=== PATIENT | female | born 1975 | race Caucasian/White ===

== ENCOUNTER 2016-08-18 09:37 | Outpatient (CLI) | payer MEDICARE | END 2016-08-18 09:38 | disposition home or self-care (01) | DX: E11.9 Type 2 diabetes mellitus without complications (principal) ==

== ENCOUNTER 2017-02-12 14:12 | Outpatient (CLI) | payer MEDICARE ==
--- NOTE | 2017-02-12 17:09 | Mammography Report ---
DIGITAL DIAGNOSTIC BILATERAL MAMMOGRAM: 02/12/2017 CLINICAL INDICATION: Galactorrhea. This is the patient's baseline mammogram. The patient reports two episodes of a small amount of clear discharge only on expression. No spontaneous or bloody discharge is described. TECHNIQUE: Bilateral CC, laterally exaggerated CC, MLO, true lateral, and spot magnification views. FINDINGS: The breasts demonstrate fatty replacement bilaterally. Coarse, typically benign calcificat ions are present. No suspicious masses, clustered microcalcifications, or regions of architectural di stortion are identified. Specifically, no retroareolar abnormality is appreciated in either breast. IMPRESSION: BENIGN FINDINGS. RECOMMENDATION: ROUTINE ANNUAL SCREENING UNLESS OTHERWISE CLINICALLY INDICATED. BIRADS CATEGORY 2-BENIGN FINDINGS. STANDARD QUALIFYING STATEMENTS 1. This examination was reviewed with the aid of Computer-Aided Detection (CAD). 2. A negative or benign imaging report should not delay biopsy if clinically suspicious findings are present. Consider surgical consultation if warranted. More than 5% of cancers are not identified by i maging. 3. Dense breasts may obscure an underlying neoplasm. JOB #: [id number] EXT JOB #:
== END 2017-02-12 14:13 | disposition home or self-care (01) ==
LOC: DI 14:12
PROVIDERS: ATTEND Physician Assistant
DX: N64.3 Galactorrhea not associated with childbirth (principal)
CPT/HCPCS: 77066

== ENCOUNTER 2017-03-18 13:14 | Outpatient (CLI) | payer MEDICARE, MEDICAID ==
[2017-03-18 19:33] LABS: HEMOGLOBIN A1C 0.77 g/dL
== END 2017-03-18 13:15 ==
LOC: LAB.N 13:14
PROVIDERS: ATTEND Nurse Practitioner Gerontology
DX: E11.9 Type 2 diabetes mellitus without complications (principal)
CPT/HCPCS: 36415; 83036

== ENCOUNTER 2017-03-20 15:18 | Outpatient (CLI) | payer MEDICARE, MEDICAID ==
[2017-03-20 19:02] LABS: BASOPHILS # (AUTO) 0.1 10^3/uL (0.0-0.1); BASOPHILS % (AUTO) 0.5 %; EOSINOPHILS # (AUTO) 0.2 10^3/uL (0.0-0.7); EOSINOPHILS % (AUTO) 1.8 %; HCT - HEMATOCRIT 43.2 % (37.0-47.0); HGB - HEMOGLOBIN 14.2 g/dL (12.0-16.0); LYMPHOCYTES # (AUTO) 3.2 10^3/uL (1.5-3.5); LYMPHOCYTES % (AUTO) 27.8 %; MEAN CORPUSCULAR HEMOGLOBIN 29.9 pg (27.0-31.0); MEAN CORPUSCULAR HGB CONC 32.8 g/dL (32.0-36.0); MEAN CORPUSCULAR VOLUME 91.2 fL (81.0-99.0); MEAN PLATELET VOLUME 9.1 fL (7.9-10.8); MONOCYTES # (AUTO) 0.4 10^3/uL (0.0-1.0); MONOCYTES % (AUTO) 3.7 %; NEUTROPHILS # (AUTO) 7.5 10^3/uL (1.5-6.6); NEUTROPHILS % (AUTO) 66.2 %; RED BLOOD COUNT 4.74 10^6/uL (4.20-5.40); RED CELL DISTRIBUTION WIDTH 15.5 % (12.0-15.0); UNCORRECTED WHITE BLOOD COUNT 11.4 x10^3/uL; WHITE BLOOD COUNT 11.4 x10^3/uL (4.8-10.8)
[2017-03-20 19:21] LABS: ALBUMIN/GLOBULIN RATIO 1.3 (1.0-2.2); BILIRUBIN,TOTAL 0.3 mg/dL (0.2-1.0); BUN - BLOOD UREA NITROGEN 15 mg/dL (6-20); CARBON DIOXIDE - CO2 24 mmol/L (21-32); CHLORIDE 108 mmol/L (101-111); CHOL/HDL RATIO 5.7 (<4.4); CHOLESTEROL 149 mg/dL; CREATININE 0.7 mg/dL (0.4-1.0); GFR - MDRD 92 (>89); GLUCOSE 113 mg/dL (70-100); HDL CHOLESTEROL 26 mg/dL; LDL/HDL RATIO 3.3 (<4.4); POTASSIUM 4.1 mmol/L (3.5-5.0); SODIUM 140 mmol/L (135-145); TOTAL PROTEIN 7.1 g/dL (6.7-8.2); TRIGLYCERIDES 184 mg/dL; VLDL CHOLESTEROL 37 mg/dL
== END 2017-03-20 15:19 | disposition home or self-care (01) ==
LOC: LAB.N 15:18
PROVIDERS: ATTEND Nurse Practitioner Gerontology
DX: I10 Essential (primary) hypertension (principal)
CPT/HCPCS: 36415; 80053; 80061; 85025

== ENCOUNTER 2017-07-10 11:35 | Outpatient (CLI) | payer MEDICARE, MEDICAID ==
[2017-07-10 20:29] LABS: HEMOGLOBIN A1C 0.78 g/dL
== END 2017-07-10 11:36 | disposition home or self-care (01) ==
LOC: LAB.N 11:35
PROVIDERS: ATTEND Nurse Practitioner Gerontology
DX: E11.9 Type 2 diabetes mellitus without complications (principal)
CPT/HCPCS: 36415; 83036

== ENCOUNTER 2017-11-04 13:25 | Outpatient (CLI) | payer MEDICARE, MEDICAID ==
[2017-11-04 19:20] LABS: HB2 TOTAL 14.6 g/dL; HEMOGLOBIN A1C 0.69 g/dL; HEMOGLOBIN A1C % 6.5 % (4.6-6.2)
== END 2017-11-04 13:26 ==
LOC: LAB.N 13:25
PROVIDERS: ATTEND Nurse Practitioner Gerontology
DX: E11.9 Type 2 diabetes mellitus without complications (principal)
CPT/HCPCS: 36415; 83036

== ENCOUNTER 2018-02-26 10:23 | Outpatient (CLI) | payer MEDICARE, MEDICAID ==
[2018-02-26 14:16] LABS: HB2 TOTAL 14.3 g/dL; HEMOGLOBIN A1C 0.72 g/dL; HEMOGLOBIN A1C % 6.8 % (4.6-6.2)
== END 2018-02-26 10:24 | disposition home or self-care (01) ==
LOC: LAB.N 10:23
PROVIDERS: ATTEND Nurse Practitioner Gerontology
DX: E11.9 Type 2 diabetes mellitus without complications (principal)
CPT/HCPCS: 36415; 83036

== ENCOUNTER 2018-06-28 15:25 | Outpatient (CLI) | payer MEDICARE, MEDICAID ==
[2018-06-28 19:36] LABS: HB2 TOTAL 15.2 g/dL; HEMOGLOBIN A1C 0.6 g/dL; HEMOGLOBIN A1C % 5.8 % (4.6-6.2)
== END 2018-06-28 15:26 | disposition home or self-care (01) ==
LOC: LAB.N 15:25
PROVIDERS: ATTEND Nurse Practitioner Gerontology
DX: E11.9 Type 2 diabetes mellitus without complications (principal)
CPT/HCPCS: 36415; 83036

== ENCOUNTER 2018-07-12 13:55 | Outpatient (CLI) | payer MEDICARE, MEDICAID | END 2018-07-12 13:56 | disposition home or self-care (01) | LOC: SC 13:55 | PROVIDERS: ATTEND Internal Medicine Pulmonary Disease | DX: R06.81 Apnea, not elsewhere classified (principal); R06.83 Snoring; E66.01 Morbid (severe) obesity due to excess calories; Z68.45 Body mass index [BMI] 70 or greater, adult; F17.210 Nicotine dependence, cigarettes, uncomplicated | CPT/HCPCS: 99203; G0463; 99212 ==

== ENCOUNTER 2018-08-23 19:28 | Outpatient (CLI) | payer MEDICARE, MEDICAID | END 2018-08-23 19:29 | disposition home or self-care (01) | LOC: SC 19:28 | PROVIDERS: ATTEND Internal Medicine Pulmonary Disease | DX: G47.33 Obstructive sleep apnea (adult) (pediatric) (principal); R09.02 Hypoxemia | CPT/HCPCS: 95810 ==

== ENCOUNTER 2018-10-28 09:19 | Outpatient (CLI) | payer MEDICARE, MEDICAID | END 2018-10-28 09:20 | disposition home or self-care (01) | LOC: SC 09:19 | PROVIDERS: ATTEND Nurse Practitioner Family | DX: G47.33 Obstructive sleep apnea (adult) (pediatric) (principal); R09.02 Hypoxemia | CPT/HCPCS: 99214; G0463; 99212 ==

== ENCOUNTER 2018-11-18 20:33 | Outpatient (CLI) | payer MEDICARE, MEDICAID | END 2018-11-18 20:34 | disposition home or self-care (01) | LOC: SC 20:33 | PROVIDERS: ATTEND Internal Medicine Pulmonary Disease | DX: G47.33 Obstructive sleep apnea (adult) (pediatric) (principal); R09.02 Hypoxemia; E66.2 Morbid (severe) obesity with alveolar hypoventilation; Z68.45 Body mass index [BMI] 70 or greater, adult | CPT/HCPCS: 95811 ==

== ENCOUNTER 2018-12-07 09:33 | Outpatient (CLI) | payer MEDICARE, MEDICAID | END 2018-12-07 09:34 | disposition home or self-care (01) | LOC: SC 09:33 | PROVIDERS: ATTEND Internal Medicine Pulmonary Disease | DX: G47.33 Obstructive sleep apnea (adult) (pediatric) (principal); E66.2 Morbid (severe) obesity with alveolar hypoventilation; J44.9 Chronic obstructive pulmonary disease, unspecified; Z87.891 Personal history of nicotine dependence | CPT/HCPCS: 99213; G0463; 99212 ==

== ENCOUNTER 2019-02-11 14:00 | Outpatient (CLI) | payer MEDICARE, MEDICAID ==
[2019-02-11 19:06] LABS: HB2 TOTAL 13.3 g/dL; HEMOGLOBIN A1C 0.69 g/dL; HEMOGLOBIN A1C % 6.9 % (4.6-6.2)
== END 2019-02-11 23:59 | disposition home or self-care (01) ==
LOC: LAB.N 14:00
PROVIDERS: ATTEND Nurse Practitioner Gerontology
DX: E11.9 Type 2 diabetes mellitus without complications (principal)
CPT/HCPCS: 36415; 83036

== ENCOUNTER 2019-04-01 14:45 | Outpatient (CLI) | payer MEDICARE, MEDICAID | END 2019-04-01 23:59 | disposition home or self-care (01) | LOC: LAB.R 14:45 | PROVIDERS: ATTEND Nurse Practitioner Gerontology | DX: R19.7 Diarrhea, unspecified (principal) | CPT/HCPCS: 87177; 87209; 87493 ==

== ENCOUNTER 2019-04-25 15:18 | Outpatient (CLI) | payer MEDICARE, MEDICAID ==
--- NOTE | 2019-04-25 17:00 | SLEEP CARE CONSULTATION ---
Information from patient questionnaire entered by Alice Perales. I have reviewed and concur with the information entered by Alice Perales. This document represents the service I personally performed and the decisions made by me, Wild Cordova MD, [facility], [place]. History of Present Illness Previous diagnosis: Moderate, Obstructive Sleep Apnea-Hypopnea Syndrome AHI: 20.1 Reason for CPAP/BiPAP follow up: first compliance Equipment type: BiPAP Equipment obtained from: [facility] Prior sleep studies: Yes Year and Where: 2018 [facility] HPI additional information: HPI: Ms. Bacon returned today for follow up of BiPAP + oxygen therapy. She was diagnosed to have moderate obstructive sleep apnea-hypopnea syndrome. The patient went to [facility] for the equipment and was fitted with a full face mask. She reports using the device nightly and all through the night. The compliance report shows usage in 30 nights out of the past 30 nights, averaging 9.8 hours a night. She complained of no particular problem with the device such as soreness on the face, dry nose, epistaxis, nasal congestion or headache. She thinks that the pressure of 19/10 cmH2O is comfortable. Oxygen supplement was ordered at 5 L/minute but she could not bleed it in because [facility] would not give her the adapter piece.. On the CPAP therapy she notices improvement in her sleep quality, and that she wakes up feeling fresher in the morning and more awake/alert during the day. The Sherwood Sleepiness Scale score 5 Her notices no snore at all. The average residual AHI is 0.5; and average time in large leak per day is 5 minutes. CPAP Compliance Data - Data Reviewed with Patient Average duration of nightly device use: 9H 50M Compliance rate %: 100 Current pressure setting (cmH2O): 05/28 Humidity setting: OFF Heated hose settin Subjective Patient concerns: reports: air blowing in eyes, dry mouth, nose, throat Initial Sherwood Sleepiness Scale score: 7 Current Sherwood Sleepiness Scale score: 5 Allergies and Home Medications Drug allergies reviewed: Yes Home medication list reviewed: Yes Review of Systems Review of systems same as previous: Yes (Quit smoking 5 weeks ago.) Physical Exam Height: 4 ft 9 in Weight (kg): 366 lb Body Mass Index: 79.2 BMI Classification: Class 3 Impression and Plan IMPRESSION: 1. Obstructive Sleep Apnea-Hypopnea Syndrome, moderate, with the patient doing well on BiPAP therapy. Oxygen supplement is not hooked up. The patient actually had [employer] come and take it away. She was advised to get the oxygen concentrator back because she needs to use oxygen at night. Because her residual AHI is very low and she complains of having to wear the mask tightly, I will lower the pressure setting. PLAN: 1. Set BiPAP at 17/8 cmH2O. 2. Try to lose weight. She is being evaluated for bariatric surgery. 3. Restart oxygen. Prescription made to [facility] to supply her with an oxygen connector port. 4. Return in one year for follow up or earlier if there is any problem with the treatment. I spent 100% of this 15 minute visit face to face with the patient with greater than 50% of this was spent time counseling the patient and coordination of care.
== END 2019-04-25 15:19 | disposition home or self-care (01) ==
LOC: SC 15:18
PROVIDERS: ATTEND Internal Medicine Pulmonary Disease
DX: G47.33 Obstructive sleep apnea (adult) (pediatric) (principal)
CPT/HCPCS: 99213; G0463; 99212

== ENCOUNTER 2019-06-21 14:10 | Outpatient (CLI) | payer MEDICARE, MEDICAID ==
[2019-06-21 18:54] LABS: HB2 TOTAL 12.8 g/dL; HEMOGLOBIN A1C 0.55 g/dL; HEMOGLOBIN A1C % 6.1 % (4.6-6.2)
== END 2019-06-21 23:59 | disposition home or self-care (01) ==
LOC: LAB.N 14:10
PROVIDERS: ATTEND Nurse Practitioner Gerontology
DX: E11.9 Type 2 diabetes mellitus without complications (principal); Z79.899 Other long term (current) drug therapy; E66.9 Obesity, unspecified
CPT/HCPCS: 36415; 83036; 84443

== ENCOUNTER 2019-06-24 08:00 | Outpatient (CLI) | payer MEDICARE, MEDICAID | END 2019-06-24 23:59 | disposition home or self-care (01) | LOC: LAB.R 08:00 | PROVIDERS: ATTEND Nurse Practitioner Gerontology | DX: Z72.0 Tobacco use (principal) | CPT/HCPCS: 80323; 81599 ==

== ENCOUNTER 2019-07-29 07:59 | Outpatient (CLI) | payer MEDICARE, MEDICAID ==
[2019-07-29 12:34] LABS: BASOPHILS # (AUTO) 0.1 10^3/uL (0.0-0.1); BASOPHILS % (AUTO) 0.7 %; EOSINOPHILS # (AUTO) 0.3 10^3/uL (0.0-0.7); EOSINOPHILS % (AUTO) 3.9 %; HGB - HEMOGLOBIN 13.5 g/dL (12.0-16.0); LYMPHOCYTES % (AUTO) 23.7 %; MEAN CORPUSCULAR HEMOGLOBIN 30.3 pg (27.0-31.0); MEAN CORPUSCULAR HGB CONC 30.6 g/dL (32.0-36.0); MEAN CORPUSCULAR VOLUME 99.1 fL (81.0-99.0); MEAN PLATELET VOLUME 11.1 fL (7.9-10.8); MONOCYTES # (AUTO) 0.5 10^3/uL (0.0-1.0); MONOCYTES % (AUTO) 6.1 %; NEUTROPHILS # (AUTO) 5.4 10^3/uL (1.5-6.6); NEUTROPHILS % (AUTO) 65.1 %; PLT - PLATELET COUNT 321 10^3/uL (130-450); RED BLOOD COUNT 4.45 10^6/uL (4.20-5.40); RED CELL DISTRIBUTION WIDTH 14.3 % (12.0-15.0); WHITE BLOOD COUNT 8.2 x10^3/uL (4.8-10.8)
[2019-07-29 12:55] LABS: ALBUMIN 3.7 g/dL (3.2-5.5); ALBUMIN/GLOBULIN RATIO 1.2 (1.0-2.2); ALKALINE PHOSPHATASE 43 IU/L (42-121); ALT ALANINE AMINOTRANSFERASE 29 IU/L (10-60); AST ASPARTATE AMINOTRANSFERASE 16 IU/L (10-42); BILIRUBIN,TOTAL 0.5 mg/dL (0.2-1.0); BUN - BLOOD UREA NITROGEN 26 mg/dL (6-20); CALCIUM 8.9 mg/dL (8.5-10.3); CARBON DIOXIDE - CO2 22 mmol/L (21-32); CHLORIDE 102 mmol/L (101-111); CHOL/HDL RATIO 5.4 (<4.4); CHOLESTEROL 140 mg/dL; CREATININE 0.6 mg/dL (0.4-1.0); GFR - MDRD 109 (>89); GLUCOSE 140 mg/dL (70-100); HDL CHOLESTEROL 26 mg/dL; LDL CHOLESTEROL,CALCULATED 93 mg/dL; LDL/HDL RATIO 3.6 (<4.4); SODIUM 135 mmol/L (135-145); TOTAL PROTEIN 6.9 g/dL (6.7-8.2); VLDL CHOLESTEROL 21 mg/dL
[2019-07-29 13:03] LABS: THYROID STIMULATING HORMONE 2.07 uIU/mL (0.34-5.60)
[2019-07-29 13:14] LABS: FOLATE 8.37 ng/mL (5.90 - >24.8)
== END 2019-07-29 23:59 | disposition home or self-care (01) ==
LOC: LAB.N 07:59
PROVIDERS: ATTEND Nurse Practitioner Gerontology
DX: Z00.00 Encounter for general adult medical examination without abnormal findings (principal); K90.49 Malabsorption due to intolerance, not elsewhere classified; J44.9 Chronic obstructive pulmonary disease, unspecified; Z79.899 Other long term (current) drug therapy; E66.2 Morbid (severe) obesity with alveolar hypoventilation; I10 Essential (primary) hypertension; E11.9 Type 2 diabetes mellitus without complications
CPT/HCPCS: 36415; 80053; 80061; 82306; 82607; 82746; 83721; 84425; 84443; 85025

== ENCOUNTER 2020-01-03 08:00 | Outpatient (CLI) | payer MEDICARE, MEDICAID | END 2020-01-03 23:59 | disposition home or self-care (01) | LOC: LAB.WCP 08:00 | PROVIDERS: ATTEND Surgery | DX: E55.9 Vitamin D deficiency, unspecified (principal); F17.211 Nicotine dependence, cigarettes, in remission; K90.9 Intestinal malabsorption, unspecified | CPT/HCPCS: 36415; 80323; 81599; 82306 ==

== ENCOUNTER 2020-01-27 10:04 | Outpatient (CLI) | payer MEDICARE, MEDICAID ==
[2020-01-27 11:53] LABS: HB2 TOTAL 12.1 g/dL; HEMOGLOBIN A1C 0.45 g/dL; HEMOGLOBIN A1C % 5.6 % (4.6-6.2)
[2020-01-27 11:57] LABS: ALBUMIN 3.5 g/dL (3.2-5.5); BILIRUBIN,TOTAL 0.5 mg/dL (0.2-1.0); CALCIUM 9.1 mg/dL (8.5-10.3); CREATININE 0.6 mg/dL (0.4-1.0); TOTAL PROTEIN 6.9 g/dL (6.7-8.2)
== END 2020-01-27 23:59 | disposition home or self-care (01) ==
LOC: LAB.WCP 10:04
PROVIDERS: ATTEND Nurse Practitioner Family
DX: E11.9 Type 2 diabetes mellitus without complications (principal)
CPT/HCPCS: 36415; 80053; 83036

== ENCOUNTER 2020-08-07 08:00 | Outpatient (CLI) | payer MEDICARE, MEDICAID ==
[2020-08-07 13:13] LABS: BASOPHILS % (AUTO) 0.4 %; EOSINOPHILS # (AUTO) 0.4 10^3/uL (0.0-0.7); EOSINOPHILS % (AUTO) 3.7 %; HCT - HEMATOCRIT 48.2 % (37.0-47.0); HGB - HEMOGLOBIN 14.9 g/dL (12.0-16.0); LYMPHOCYTES % (AUTO) 19.6 %; MEAN CORPUSCULAR HEMOGLOBIN 30.3 pg (27.0-31.0); MEAN CORPUSCULAR HGB CONC 30.9 g/dL (32.0-36.0); MEAN CORPUSCULAR VOLUME 98.2 fL (81.0-99.0); MEAN PLATELET VOLUME 10.6 fL (7.9-10.8); MONOCYTES # (AUTO) 0.7 10^3/uL (0.0-1.0); MONOCYTES % (AUTO) 6.5 %; NEUTROPHILS # (AUTO) 7.2 10^3/uL (1.5-6.6); NEUTROPHILS % (AUTO) 69.5 %; PLT - PLATELET COUNT 302 10^3/uL (130-450); RED BLOOD COUNT 4.91 10^6/uL (4.20-5.40); RED CELL DISTRIBUTION WIDTH 14.6 % (12.0-15.0); WHITE BLOOD COUNT 10.4 x10^3/uL (4.8-10.8)
[2020-08-07 14:11] LABS: ALBUMIN 3.9 g/dL (3.2-5.5); ALBUMIN/GLOBULIN RATIO 1.2 (1.0-2.2); BILIRUBIN,TOTAL 0.5 mg/dL (0.2-1.0); CALCIUM 8.9 mg/dL (8.5-10.3); CREATININE 0.6 mg/dL (0.4-1.0); POTASSIUM 4.4 mmol/L (3.5-5.0); TOTAL PROTEIN 7.1 g/dL (6.7-8.2)
== END 2020-08-07 23:59 | disposition home or self-care (01) ==
LOC: LAB.N 08:00
PROVIDERS: ATTEND Nurse Practitioner
DX: R10.13 Epigastric pain (principal)
CPT/HCPCS: 36415; 80053; 82150; 83690; 85025

== ENCOUNTER 2020-09-17 07:00 | Outpatient (CLI) | payer MEDICARE, MEDICAID | END 2020-09-17 23:59 | disposition home or self-care (01) | LOC: LAB.R 07:00 | PROVIDERS: ATTEND Nurse Practitioner | DX: R43.9 Unspecified disturbances of smell and taste (principal); Z20.822 Contact with and (suspected) exposure to COVID-19 | CPT/HCPCS: 87275; 87276; U0004 ==

== ENCOUNTER 2020-12-25 08:00 | Outpatient (CLI) | payer MEDICARE, MEDICAID ==
[2020-12-25 11:55] LABS: BASOPHILS # (AUTO) 0.1 10^3/uL (0.0-0.1); BASOPHILS % (AUTO) 0.7 %; EOSINOPHILS # (AUTO) 0.5 10^3/uL (0.0-0.7); EOSINOPHILS % (AUTO) 5.4 %; HCT - HEMATOCRIT 45.7 % (37.0-47.0); HGB - HEMOGLOBIN 13.6 g/dL (12.0-16.0); LYMPHOCYTES # (AUTO) 2.3 10^3/uL (1.5-3.5); LYMPHOCYTES % (AUTO) 23.7 %; MEAN CORPUSCULAR HEMOGLOBIN 29.6 pg (27.0-31.0); MEAN CORPUSCULAR HGB CONC 29.8 g/dL (32.0-36.0); MEAN CORPUSCULAR VOLUME 99.3 fL (81.0-99.0); MEAN PLATELET VOLUME 11.1 fL (7.9-10.8); MONOCYTES # (AUTO) 0.6 10^3/uL (0.0-1.0); MONOCYTES % (AUTO) 6.2 %; NEUTROPHILS # (AUTO) 6.1 10^3/uL (1.5-6.6); NEUTROPHILS % (AUTO) 63.7 %; PLT - PLATELET COUNT 255 10^3/uL (130-450); RED CELL DISTRIBUTION WIDTH 14.6 % (12.0-15.0); WHITE BLOOD COUNT 9.6 x10^3/uL (4.8-10.8)
[2020-12-25 12:31] LABS: CALCIUM 9.3 mg/dL (8.5-10.3); CARBON DIOXIDE - CO2 30 mmol/L (21-32); CHLORIDE 101 mmol/L (101-111); GLUCOSE 109 mg/dL (70-100); POTASSIUM 4.7 mmol/L (3.5-5.0); SODIUM 140 mmol/L (135-145)
[2020-12-25 12:46] LABS: THYROID STIMULATING HORMONE 1.19 uIU/mL (0.34-5.60)
[2020-12-25 13:23] LABS: ESTIMATED AVERAGE GLUCOSE 117 mg/dL (70-100); HEMOGLOBIN A1c% 5.7 % (4.27-6.07)
[2020-12-25 13:24] LABS: ALBUMIN 3.9 g/dL (3.2-5.5); ALBUMIN/GLOBULIN RATIO 1.3 (1.0-2.2); ALKALINE PHOSPHATASE 47 IU/L (42-121); ALT ALANINE AMINOTRANSFERASE 30 IU/L (10-60); AST ASPARTATE AMINOTRANSFERASE 17 IU/L (10-42); BILIRUBIN,TOTAL 0.6 mg/dL (0.2-1.0); BUN - BLOOD UREA NITROGEN 22 mg/dL (6-20); CHOLESTEROL 140 mg/dL; CREATININE 0.7 mg/dL (0.4-1.0); GFR - MDRD 90 (>89); HDL CHOLESTEROL 35 mg/dL; LDL CHOLESTEROL,CALCULATED 88 mg/dL; LDL/HDL RATIO 2.5 (<4.4); TRIGLYCERIDES 87 mg/dL; VLDL CHOLESTEROL 17 mg/dL
== END 2020-12-25 23:59 | disposition home or self-care (01) ==
LOC: LAB.WCP 08:00
PROVIDERS: ATTEND Nurse Practitioner Family
DX: E66.2 Morbid (severe) obesity with alveolar hypoventilation (principal); I10 Essential (primary) hypertension; E11.9 Type 2 diabetes mellitus without complications
CPT/HCPCS: 36415; 80053; 80061; 83036; 83721; 84443; 85025

== ENCOUNTER 2021-03-26 19:14 | Outpatient (CLI) | payer MEDICARE, MEDICAID | END 2021-03-26 23:59 | disposition home or self-care (01) | LOC: LAB.N 19:14 | PROVIDERS: ATTEND Physician Assistant Medical | DX: R50.9 Fever, unspecified (principal); Z20.822 Contact with and (suspected) exposure to COVID-19 ==

== ENCOUNTER 2021-03-26 19:52 | Outpatient (CLI) | payer MEDICARE, MEDICAID | END 2021-03-26 19:53 | disposition short-term general hospital (02) | LOC: EMS 19:52 | DX: R50.9 Fever, unspecified (principal); R06.02 Shortness of breath; R05 Cough | CPT/HCPCS: A0425; A0427 ==

== ENCOUNTER 2021-04-25 12:19 | Outpatient (CLI) | payer MEDICARE, MEDICAID ==
[2021-04-25 12:45] LABS: CREATININE 0.5 mg/dL (0.4-1.0)
[2021-04-25] MEDS ORDERED: IOPAMIDOL-300 100 ML VIAL ONE (13:25)
[2021-04-25] MEDS ORDERED: IOPAMIDOL-300 100 ML VIAL IVP ONE (15:56)
--- NOTE | 2021-04-25 16:25 | CT Report ---
PROCEDURE: ABDOMEN W/WO INDICATIONS: LIVER LESION CONTRAST: IV CONTRAST: Isovue 300 ml: 100 PO CONTRAST: *NO PO CONTRAST TECHNIQUE: Noncontrast 5 mm thick sections acquired from the diaphragms to the symphysis. 5 mm coronal and sagi ttal reformats were then performed. For radiation dose reduction, the following was used: automated exposure control, adjustment of mA and/or kV according to patient size. COMPARISON: 03/27/2021, CT angiogram chest FINDINGS: Image quality: Good, limited by patient body habitus.. Lung bases: Right middle lobe atelectatic change. Lung bases are otherwise clear. Heart size is carmel l. Liver: Enlarged liver measuring 21.8 cm and craniocaudal dimension. There is an ill-defined rounded hypodensity in the dorsal aspect of the left hepatic lobe, segment II/III. This measures approximatel y 2.3 x 2 0.6 to 2.0 cm with indeterminant precontrast Hounsfield units of approximately 37, and mini mal enhancement postcontrast. No other definite liver lesion. Solid organs: The spleen is normal size. Gallbladder is decompressed around a few peripherally calcif ied gallstones versus porcelain gallbladder. Biliary system is non dilated. Pancreas enhances carmel lly. Kidneys are normal in size and enhancement. No hydronephrosis or nephrolithiasis. Peritoneum and bowel: Unenhanced bowel loops are normal in caliber and wall thickness. No free flui d or air. Nodes and vessels: No retroperitoneal or mesenteric adenopathy by size criteria. Aorta and inferior vena cava are normal in size. Miscellaneous: No ventral hernias. Bones: No suspicious bony lesions. No vertebral body compression fractures. IMPRESSION: 1. Nonenhancing 2.6 cm relative hypodense lesion in the left hepatic lobe, probably benign, hemangio ma, adenoma or cyst. Given incomplete characterization due to body habitus limitations, consider ultr asound evaluation versus follow-up in 6 months is recommended. 2. Hepatomegaly. 3. Cholelithiasis versus porcelain gallbladder. Reviewed by: Yasmin Guy MD on 04/25/2021 4:24 PM PDT Approved by: Yasmin Guy MD on 04/25/2021 4:24 PM PDT Station ID: [id number]
== END 2021-04-25 12:20 | disposition home or self-care (01) ==
LOC: LAB 12:19
PROVIDERS: ATTEND Family Medicine
DX: K76.9 Liver disease, unspecified (principal); R16.0 Hepatomegaly, not elsewhere classified; R93.3 Abnormal findings on diagnostic imaging of other parts of digestive tract
CPT/HCPCS: 36415; 74170; 82565; Q9967

== ENCOUNTER 2021-05-07 12:33 | Outpatient (CLI) | payer MEDICARE, MEDICAID ==
[2021-05-07 18:01] LABS: BASOPHILS # (AUTO) 0.1 10^3/uL (0.0-0.1); BASOPHILS % (AUTO) 0.8 %; EOSINOPHILS # (AUTO) 0.2 10^3/uL (0.0-0.7); EOSINOPHILS % (AUTO) 3.1 %; HCT - HEMATOCRIT 45.3 % (37.0-47.0); HGB - HEMOGLOBIN 13.7 g/dL (12.0-16.0); LYMPHOCYTES # (AUTO) 1.9 10^3/uL (1.5-3.5); MEAN CORPUSCULAR HEMOGLOBIN 29.7 pg (27.0-31.0); MEAN CORPUSCULAR HGB CONC 30.2 g/dL (32.0-36.0); MEAN CORPUSCULAR VOLUME 98.1 fL (81.0-99.0); MEAN PLATELET VOLUME 10.9 fL (7.9-10.8); MONOCYTES # (AUTO) 0.5 10^3/uL (0.0-1.0); MONOCYTES % (AUTO) 6.6 %; NEUTROPHILS % (AUTO) 64.2 %; PLT - PLATELET COUNT 271 10^3/uL (130-450); RED BLOOD COUNT 4.62 10^6/uL (4.20-5.40); RED CELL DISTRIBUTION WIDTH 15.6 % (12.0-15.0); WHITE BLOOD COUNT 7.7 x10^3/uL (4.8-10.8)
[2021-05-07 18:21] LABS: ALBUMIN/GLOBULIN RATIO 1.2 (1.0-2.2); ALKALINE PHOSPHATASE 43 IU/L (42-121); ALT ALANINE AMINOTRANSFERASE 22 IU/L (10-60); AST ASPARTATE AMINOTRANSFERASE 14 IU/L (10-42); BILIRUBIN,TOTAL 0.9 mg/dL (0.2-1.0); BUN - BLOOD UREA NITROGEN 15 mg/dL (6-20); CALCIUM 9.2 mg/dL (8.5-10.3); CARBON DIOXIDE - CO2 28 mmol/L (21-32); CHLORIDE 102 mmol/L (101-111); CHOL/HDL RATIO 4.1 (<4.4); CHOLESTEROL 143 mg/dL; CREATININE 0.5 mg/dL (0.4-1.0); GFR - MDRD 133 (>89); GLUCOSE 96 mg/dL (70-100); HDL CHOLESTEROL 35 mg/dL; LDL CHOLESTEROL,CALCULATED 85 mg/dL; LDL/HDL RATIO 2.4 (<4.4); POTASSIUM 4.7 mmol/L (3.5-5.0); SODIUM 138 mmol/L (135-145); TOTAL PROTEIN 7.4 g/dL (6.7-8.2); TRIGLYCERIDES 113 mg/dL; VLDL CHOLESTEROL 23 mg/dL
[2021-05-07 18:22] LABS: CREATININE,URINE 41.6 mg/dL; MICROALBUM/CREATININE RATIO,UR 4.8 ug/mg (<30.0); MICROALBUMIN,URINE 0.2 mg/dL (0-300.0)
[2021-05-07 18:29] LABS: CRP - C-REACTIVE PROTEIN < 1.0 mg/dL (0-1.0); THYROID STIMULATING HORMONE 1.38 uIU/mL (0.34-5.60)
== END 2021-05-07 23:59 | disposition home or self-care (01) ==
LOC: LAB.WCP 12:33
PROVIDERS: ATTEND Nurse Practitioner
DX: E11.9 Type 2 diabetes mellitus without complications (principal); R53.83 Other fatigue; M35.3 Polymyalgia rheumatica
CPT/HCPCS: 36415; 80053; 80061; 82043; 82570; 83721; 84443; 85025; 85651; 86140

== ENCOUNTER 2021-11-05 12:01 | Outpatient (CLI) | payer MEDICARE, MEDICAID ==
[2021-11-05] MEDS ORDERED: IOVERSOL 320 100 ML VIAL IVP ONE ×2 (12:20→20:03)
[2021-11-05 12:39] LABS: CREATININE 0.5 mg/dL (0.4-1.0)
--- NOTE | 2021-11-07 10:24 | CT Report ---
PROCEDURE: ABDOMEN W/WO INDICATIONS: LIVER LESION CONTRAST: IV CONTRAST: Optiray 320 ml: 100 PO CONTRAST: *NO PO CONTRAST TECHNIQUE: 4 phase scanning was performed. After the administration of intravenous contrast, 5 mm thick section s acquired from the diaphragm to the symphysis. 5 mm coronal and sagittal reformats were acquired. For radiation dose reduction, the following was used: automated exposure control, adjustment of mA a nd/or kV according to patient size. COMPARISON: CT angiogram of the chest 03/27/2021; CT of the abdomen 04/25/2021 FINDINGS: This is a limited examination due to IV contrast infiltration. No appreciable intravenous contrast is appreciated. There is little discernible difference between the precontrast and postcontrast injecti on sequences. The left hepatic lobe lesion of interest is not well characterized due to the lack of IV contrast. Si ze of the lesion is grossly unchanged at approximately 2.3 cm. Remaining findings are unchanged from the prior study. IMPRESSION: Grossly unchanged left hepatic lobe lesion, favored to be a benign lesion such as hemangioma, adenoma , or less likely cyst. Ultrasound may be preferential to follow this lesion, given the patient's body habitus which makes IV access challenging and also results in large radiation dose with CT utilizati on (particularly for a multiphase liver study). Reviewed by: Roger Lange MD on 11/07/2021 10:23 AM PDT Approved by: Roger Lange MD on 11/07/2021 10:23 AM PDT Station ID: [id number]
== END 2021-11-05 12:02 | disposition home or self-care (01) ==
LOC: DI 12:01
PROVIDERS: ATTEND Nurse Practitioner
DX: K76.9 Liver disease, unspecified (principal)
CPT/HCPCS: 36415; 74170; 82565; Q9967

== ENCOUNTER 2021-12-03 10:49 | Outpatient (CLI) | payer MEDICARE, MEDICAID ==
--- NOTE | 2021-12-03 16:41 | Ultrasound Report ---
PROCEDURE: Abdomen Limited INDICATIONS: MORBID OBESITY TECHNIQUE: Real-time focused scanning was performed of the abdomen, with image documentation. COMPARISON: 11/05/2021 CT abdomen and pelvis FINDINGS: Hepatomegaly redemonstrated. Previously described hypoechoic left hepatic lobe lesion is h ypoechoic without increased associated vascularity. This measures approximately 2.5-3 cm in maximum d iameter, similar to the measurements obtained on 04/25/2021 CT abdomen and 03/27/2021 CT angiogram of t he chest. This is likely a benign finding given the relative stability since March 2021. There is di ffuse hepatic steatosis, overall moderate to severe. Porcelain gallbladder redemonstrated. No gallbla dder wall thickening. No intrahepatic or extra hepatic biliary ductal dilatation. Pancreas and right kidney are normal. IMPRESSION: Left hepatic lobe lesion is not significantly changed from March 2021 CT angiography of the chest an d likely represents a hemangioma. Reviewed by: Roger Lange MD on 12/03/2021 4:39 PM PDT Approved by: Roger Lange MD on 12/03/2021 4:39 PM PDT Station ID: [id number]
== END 2021-12-03 10:50 | disposition home or self-care (01) ==
LOC: DI 10:49
PROVIDERS: ATTEND Nurse Practitioner
DX: E66.01 Morbid (severe) obesity due to excess calories (principal); Z68.45 Body mass index [BMI] 70 or greater, adult; R93.2 Abnormal findings on diagnostic imaging of liver and biliary tract

== ENCOUNTER 2021-12-19 08:05 | Outpatient (CLI) | payer MEDICARE, MEDICAID ==
[2021-12-19 13:52] LABS: ESTIMATED AVERAGE GLUCOSE 143 mg/dL (70-100); HEMOGLOBIN A1c% 6.6 % (4.27-6.07)
== END 2021-12-19 08:06 | disposition home or self-care (01) ==
LOC: LAB.N 08:05
PROVIDERS: ATTEND Nurse Practitioner
DX: E11.9 Type 2 diabetes mellitus without complications (principal)
CPT/HCPCS: 36415; 83036

== ENCOUNTER 2022-06-13 09:41 | Outpatient (CLI) | payer MEDICARE, MEDICAID ==
[2022-06-13 12:57] LABS: BASOPHILS # (AUTO) 0.1 10^3/uL (0.0-0.1); BASOPHILS % (AUTO) 0.6 %; EOSINOPHILS # (AUTO) 0.6 10^3/uL (0.0-0.7); EOSINOPHILS % (AUTO) 7.2 %; HCT - HEMATOCRIT 48.4 % (37.0-47.0); LYMPHOCYTES # (AUTO) 2.5 10^3/uL (1.5-3.5); LYMPHOCYTES % (AUTO) 29.9 %; MEAN CORPUSCULAR VOLUME 96.8 fL (81.0-99.0); MEAN PLATELET VOLUME 12.3 fL (7.9-10.8); MONOCYTES # (AUTO) 0.7 10^3/uL (0.0-1.0); NEUTROPHILS # (AUTO) 4.5 10^3/uL (1.5-6.6); NEUTROPHILS % (AUTO) 54.2 %; PLT - PLATELET COUNT 203 10^3/uL (130-450); RED CELL DISTRIBUTION WIDTH 14.8 % (12.0-15.0); WHITE BLOOD COUNT 8.2 x10^3/uL (4.8-10.8)
[2022-06-13 12:59] LABS: ALBUMIN 4.2 g/dL (3.2-5.5); ALBUMIN/GLOBULIN RATIO 1.3 (1.0-2.2); BILIRUBIN,TOTAL 0.7 mg/dL (0.2-1.0); CALCIUM 9.2 mg/dL (8.5-10.3); CREATININE 0.7 mg/dL (0.4-1.0); POTASSIUM 3.6 mmol/L (3.5-5.0); TOTAL PROTEIN 7.5 g/dL (6.7-8.2)
== END 2022-06-13 09:42 | disposition home or self-care (01) ==
LOC: LAB.N 09:41
PROVIDERS: ATTEND Nurse Practitioner
DX: J18.9 Pneumonia, unspecified organism (principal)
CPT/HCPCS: 36415; 80053; 85025

== ENCOUNTER 2022-12-30 07:04 | Outpatient (CLI) | payer MEDICARE, MEDICAID ==
--- NOTE | 2022-12-30 11:59 | Ultrasound Report ---
PROCEDURE: Abdomen Limited INDICATIONS: LIVER LESION TECHNIQUE: Real-time focused scanning was performed of the abdomen, with image documentation. COMPARISONS: CT 11/05/2021, 2020 FINDINGS: Liver: Increased liver echogenicity, commonly mild hepatic steatosis. Again seen is the mixed hypere choic and hypoechoic lesion in the left hepatic lobe measuring 2.5 x 1.5 x 1.5 cm, similar to prior. Hepatomegaly. Gallbladder: Absent. Biliary ducts: Intrahepatic bile ducts are non-dilated. Extrahepatic bile duct caliber measures 5 m m. Normal is 6-7 mm or less in diameter, or 10 mm or less post-cholecystectomy. Pancreas: Not well visualized due to overlying bowel gas. Right kidney: Normal in size and echotexture. Right kidney measures 10.5 cm long. No hydronephrosis or nephrolithiasis. No solid masses. No complex renal cystic lesions which require follow-up. Aorta: Visualized aorta is normal in caliber at less than 3 cm. IVC: Intrahepatic inferior vena cava is patent. Miscellaneous: No free abdominal fluid. IMPRESSION: Stable left hepatic lobe lesion compared with 2020. Stability favors a benign etiology. Reviewed by: Miki Avery on 12/30/2022 10:58 AM [facility] Approved by: Miki Avery on 12/30/2022 10:58 AM [facility] Station ID: [id number]
== END 2022-12-30 07:05 | disposition home or self-care (01) ==
LOC: DI 07:04
PROVIDERS: ATTEND Nurse Practitioner
DX: K76.9 Liver disease, unspecified (principal)

== ENCOUNTER 2023-01-20 07:10 | Outpatient (CLI) | payer MEDICARE, MEDICAID ==
[2023-01-20 11:46] LABS: BASOPHILS % (AUTO) 0.5 %; EOSINOPHILS # (AUTO) 0.2 10^3/uL (0.0-0.7); EOSINOPHILS % (AUTO) 3.3 %; HCT - HEMATOCRIT 42.8 % (37.0-47.0); HGB - HEMOGLOBIN 13.8 g/dL (12.0-16.0); LYMPHOCYTES % (AUTO) 27.4 %; MEAN CORPUSCULAR HEMOGLOBIN 30.5 pg (27.0-31.0); MEAN CORPUSCULAR HGB CONC 32.2 g/dL (32.0-36.0); MEAN CORPUSCULAR VOLUME 94.7 fL (81.0-99.0); MEAN PLATELET VOLUME 12.1 fL (7.9-10.8); MONOCYTES # (AUTO) 0.5 10^3/uL (0.0-1.0); MONOCYTES % (AUTO) 6.3 %; NEUTROPHILS # (AUTO) 4.6 10^3/uL (1.5-6.6); NEUTROPHILS % (AUTO) 62.4 %; PLT - PLATELET COUNT 230 10^3/uL (130-450); RED BLOOD COUNT 4.52 10^6/uL (4.20-5.40); RED CELL DISTRIBUTION WIDTH 13.9 % (12.0-15.0); WHITE BLOOD COUNT 7.4 x10^3/uL (4.8-10.8)
[2023-01-20 12:24] LABS: ALBUMIN 3.7 g/dL (3.2-5.5); ALBUMIN/GLOBULIN RATIO 1.2 (1.0-2.2); ALKALINE PHOSPHATASE 73 IU/L (42-121); ALT ALANINE AMINOTRANSFERASE 76 IU/L (10-60); AST ASPARTATE AMINOTRANSFERASE 32 IU/L (10-42); BILIRUBIN,TOTAL 0.5 mg/dL (0.2-1.0); BUN - BLOOD UREA NITROGEN 11 mg/dL (6-20); CARBON DIOXIDE - CO2 24 mmol/L (21-32); CHLORIDE 111 mmol/L (101-111); CHOL/HDL RATIO 2.9 (<4.4); CHOLESTEROL 61 mg/dL; CREATININE 0.5 mg/dL (0.4-1.0); GFR - MDRD 132 (>89); GLUCOSE 99 mg/dL (70-100); HDL CHOLESTEROL 21 mg/dL; LDL CHOLESTEROL,CALCULATED 32 mg/dL; LDL/HDL RATIO 1.5 (<4.4); POTASSIUM 4.1 mmol/L (3.5-5.0); SODIUM 141 mmol/L (135-145); TOTAL PROTEIN 6.7 g/dL (6.7-8.2); TRIGLYCERIDES 42 mg/dL; VLDL CHOLESTEROL 8 mg/dL
[2023-01-20 12:36] LABS: ESTIMATED AVERAGE GLUCOSE 105 mg/dL (70-100); HEMOGLOBIN A1c% 5.3 % (4.27-6.07)
[2023-01-20 12:40] LABS: CREATININE,URINE 122.1 mg/dL; MICROALBUM/CREATININE RATIO,UR 4.1 ug/mg (<30.0); MICROALBUMIN,URINE 0.5 mg/dL (0-300.0)
== END 2023-01-20 07:11 | disposition home or self-care (01) ==
LOC: LAB.N 07:10
PROVIDERS: ATTEND Nurse Practitioner
DX: E11.9 Type 2 diabetes mellitus without complications (principal); E78.5 Hyperlipidemia, unspecified
CPT/HCPCS: 36415; 80053; 80061; 82043; 82570; 83036; 83721; 85025

== ENCOUNTER 2023-03-03 14:12 | Emergency (ER) | payer MEDICARE, MEDICAID ==
[2023-03-03 14:23] VITALS: BP 150/90
[2023-03-03] MEDS: KETOROLAC 30 MG/ML VIAL IM STA (14:36)
--- NOTE | 2023-03-03 15:30 | ED Physician Documentation ---
PD HPI LOWER EXT INJURY - Stated complaint Stated Complaint: LT FOOT PX - Chief complaint Chief Complaint: Ext Problem - History obtained from History obtained from: Patient - History of Present Illness PD HPI LOW EXT INJURY LOCATION: Left, Foot - Additional information Additional information: 47-year-old female presents for evaluation of atraumatic left foot pain. Patient states she was walking when she felt the top of her foot at the base of her toes began to ache and throb. Tried meloxicam and topical lidocaine without significant relief. Review of Systems Constitutional: denies: Fever, Chills Cardiac: denies: Chest pain / pressure, Palpitations Respiratory: denies: Dyspnea, Cough, Wheezing Musculoskeletal: reports: Extremity pain. denies: Neck pain, Back pain, Joint pain Neurologic: denies: Generalized weakness, Focal weakness PD PAST MEDICAL HISTORY - Present Medications Home Medications: Ambulatory Orders Medication Instructions Recorded Confirmed Diclofenac Sodium 1% Gel [Voltaren 2 gm TOP QID PRN #50 gm 03/03/23 Gel] - Allergies Allergies/Adverse Reactions: Allergies Allergy/AdvReac Type Severity Reaction Status Date / Time No Known Drug Allergies Allergy Verified 03/03/23 14:16 PD ED PE NORMAL - Vitals Vital signs reviewed: Yes - General General: Alert and oriented X 3, No acute distress, Well developed/nourished - HEENT HEENT: Atraumatic - Cardiac Cardiac: RRR, No murmur, Strong equal pulses - Abdomen Abdomen: Soft, Non tender, Non distended - Derm Derm: Normal color, Warm and dry, No rash - Extremities Extremities: No deformity, Normal ROM s pain, No edema, No calf tenderness / cord, Other (TTP over dorsum of L distal foot. 2+ DP pulses, sensation intact and equal) Results - Vitals Vitals: Vital Signs - 24 hr 03/03/23 14:16 Temperature 36.5 C Heart Rate 74 Respiratory 16 Rate Blood Pressure 150/90 H O2 Saturation 95 Oxygen O2 Source Room air PD Medical Decision Making - ED course Complexity details: reviewed results, re-evaluated patient, considered differential, d/w patient ED course: Atraumatic right foot pain. Tenderness over entire dorsum of foot. Patient given IM Toradol and x-rays were obtained. X-ray showed no acute pathology. Distribution is atypical for gout and at this point it seems more likely to be tendon strain. Patient was counseled on her x-ray results. Will place in postop shoe for comfort, advised against footwear such as flip-flops as these may aggravate the tendons in her foot. Patient is a gastric bypass patient, she is not supposed to take NSAIDs, however will do Voltaren gel. Advised to take with Tylenol. Ice as needed for comfort. Departure - Departure Disposition: 01 Home, Self Care Clinical Impression: Foot pain Condition: Stable Instructions: NICHOLE TRIPATHI Sprain Foot Prescriptions: Diclofenac Sodium 1% Gel [Voltaren Gel] 2 gm TOP QID PRN #50 gm PRN Reason: Pain 1-4 Forms: PCP List Discharge Date/Time: 03/03/23 16:02
--- NOTE | 2023-03-03 15:48 | XRAY Report ---
PROCEDURE: Foot 3 View LT INDICATIONS: distal foot pain TECHNIQUE: 3 views of the foot were acquired. COMPARISON: None. FINDINGS: Bones: Mild scattered degenerative changes, most notably at the first MTP. No displaced fracture or dislocation. Plantar calcaneal enthesopathy. Soft tissues: No suspicious calcifications. IMPRESSION: No acute radiographic abnormality. Mild scattered degenerative changes. If there is high concern for further derangement, consider MRI evaluation. Reviewed by: Jonnie Grier MD on 03/03/2023 3:22 PM PDT Approved by: Jonnie Grier MD on 03/03/2023 3:22 PM PDT Station ID: [id number]
== END 2023-03-03 16:02 | disposition home or self-care (01) ==
LOC: ED 14:12
DX: M79.672 Pain in left foot (principal)
CPT/HCPCS: 96372; 99283

== ENCOUNTER 2023-04-01 15:00 | Outpatient (CLI) | payer MEDICARE, MEDICAID ==
[2023-04-01 18:03] LABS: CRP - C-REACTIVE PROTEIN 0.5 mg/dL (<0.5)
== END 2023-04-01 15:15 | disposition home or self-care (01) ==
LOC: LAB.N 15:00
PROVIDERS: ATTEND Family Medicine
DX: M19.072 Primary osteoarthritis, left ankle and foot (principal)
CPT/HCPCS: 36415; 84550; 85651; 86140

== ENCOUNTER 2023-06-16 17:41 | Outpatient (CLI) | payer MEDICARE, MEDICAID | END 2023-06-16 17:42 | disposition short-term general hospital (02) | LOC: EMS 17:41 | DX: R06.2 Wheezing (principal); R06.02 Shortness of breath; R23.2 Flushing; L50.9 Urticaria, unspecified; R09.89 Other specified symptoms and signs involving the circulatory and respiratory systems | CPT/HCPCS: A0425; A0427 ==

== ENCOUNTER 2023-07-07 08:26 | Outpatient (CLI) | payer MEDICARE, MEDICAID ==
[2023-07-07 11:47] LABS: BASOPHILS # (AUTO) 0.1 10^3/uL (0.0-0.1); BASOPHILS % (AUTO) 0.7 %; EOSINOPHILS # (AUTO) 0.3 10^3/uL (0.0-0.7); EOSINOPHILS % (AUTO) 4.4 %; HCT - HEMATOCRIT 46.1 % (37.0-47.0); HGB - HEMOGLOBIN 14.4 g/dL (12.0-16.0); LYMPHOCYTES # (AUTO) 2.4 10^3/uL (1.5-3.5); LYMPHOCYTES % (AUTO) 32.2 %; MEAN CORPUSCULAR HEMOGLOBIN 30.3 pg (27.0-31.0); MEAN CORPUSCULAR HGB CONC 31.2 g/dL (32.0-36.0); MEAN CORPUSCULAR VOLUME 97.1 fL (81.0-99.0); MEAN PLATELET VOLUME 11.4 fL (7.9-10.8); MONOCYTES # (AUTO) 0.5 10^3/uL (0.0-1.0); MONOCYTES % (AUTO) 6.6 %; NEUTROPHILS # (AUTO) 4.1 10^3/uL (1.5-6.6); PLT - PLATELET COUNT 237 10^3/uL (130-450); RED BLOOD COUNT 4.75 10^6/uL (4.20-5.40); RED CELL DISTRIBUTION WIDTH 12.9 % (12.0-15.0); WHITE BLOOD COUNT 7.3 x10^3/uL (4.8-10.8)
[2023-07-07 12:06] LABS: ESTIMATED AVERAGE GLUCOSE 100 mg/dL (70-100); HEMOGLOBIN A1c% 5.1 % (4.27-6.07)
[2023-07-07 12:07] LABS: ALBUMIN 3.9 g/dL (3.2-5.5); ALBUMIN/GLOBULIN RATIO 1.7 (1.0-2.2); ALKALINE PHOSPHATASE 82 IU/L (42-121); ALT ALANINE AMINOTRANSFERASE 38 IU/L (10-60); AST ASPARTATE AMINOTRANSFERASE 21 IU/L (10-42); BILIRUBIN,TOTAL 0.4 mg/dL (0.2-1.0); BUN - BLOOD UREA NITROGEN 6 mg/dL (6-20); CALCIUM 9.2 mg/dL (8.5-10.3); CARBON DIOXIDE - CO2 28 mmol/L (21-32); CHLORIDE 107 mmol/L (101-111); CHOL/HDL RATIO 4.3 (<4.4); CHOLESTEROL 120 mg/dL; CREATININE 0.4 mg/dL (0.6-1.3); GFR - MDRD 171 (>89); GLUCOSE 84 mg/dL (74-104); HDL CHOLESTEROL 28 mg/dL; LDL CHOLESTEROL,CALCULATED 62 mg/dL; LDL/HDL RATIO 2.2 (<4.4); POTASSIUM 4.1 mmol/L (3.5-4.5); SODIUM 139 mmol/L (135-145); TOTAL PROTEIN 6.2 g/dL (6.4-8.9); TRIGLYCERIDES 149 mg/dL (48-352); VLDL CHOLESTEROL 30 mg/dL
[2023-07-07 12:47] LABS: THYROID STIMULATING HORMONE 1.43 uIU/mL (0.34-5.60)
== END 2023-07-07 08:27 | disposition home or self-care (01) ==
LOC: LAB.N 08:26
PROVIDERS: ATTEND Surgery
DX: Z98.84 Bariatric surgery status (principal)
CPT/HCPCS: 36415; 80053; 80061; 82306; 82607; 83036; 83721; 84425; 84443; 84590; 85025

== ENCOUNTER 2024-04-22 06:52 | Outpatient (CLI) | payer MEDICAID, MEDICARE ==
--- NOTE | 2024-04-22 09:04 | Ultrasound Report ---
PROCEDURE: Abdomen Limited INDICATIONS: LIVER LESION TECHNIQUE: Real-time focused scanning was performed of the abdomen, with image documentation. COMPARISONS: Limited abdomen ultrasound 12/30/2022 and 12/03/2021 FINDINGS: Liver: The liver is borderline enlarged, with the right lobe measuring 19.7 cm in the craniocaudal d imension. The parenchyma is homogenous but hyperechoic. In the left lobe, there is a 1.8 x 1.1 x 0.9 cm ovoid hyperechoic lesion without any significant posterior acoustic enhancement. On 12/30/2022, thi s lesion had central hyperechogenicity and eccentric hypoechogenicity, measuring 2.5 x 1.5 x 1.5 cm. Gallbladder: No gallstones, sludge, wall thickening or pericholecystic edema. Biliary ducts: Intrahepatic bile ducts are non-dilated. Extrahepatic bile duct caliber measures 4 m m. Normal is 6-7 mm or less in diameter, or 10 mm or less post-cholecystectomy. Pancreas: Visualized portions of the pancreas are sonographically normal. The pancreatic tail was no t identified due to overlying bowel gas. Right kidney: Normal in size and echotexture. Right kidney measures 11.2 cm long. No hydronephrosis or nephrolithiasis. No solid masses. No complex renal cystic lesions which require follow-up. IVC: Intrahepatic inferior vena cava is patent. Miscellaneous: No free abdominal fluid. IMPRESSION: 1.Hepatic steatosis versus underlying hepatocellular disease. 2.Interval decrease in size of 1.8 cm left hepatic lobe lesion. The variable appearance over prior ul trasounds suggests that this finding may represent a benign finding such as a liver hemangioma. Reviewed by: Reji Hanna MD on 04/22/2024 9:02 AM PDT Approved by: Reji Hanna MD on 04/22/2024 9:02 AM PDT Station ID: [id number]
== END 2024-04-22 06:53 | disposition home or self-care (01) ==
LOC: DI 06:52
PROVIDERS: ATTEND Nurse Practitioner
DX: K76.9 Liver disease, unspecified (principal)